=== PATIENT | male | born 1975 | race Caucasian/White ===

== ENCOUNTER 2019-10-19 11:39 | Emergency (ER) | payer MEDICAID ==
[~2019-10-19] VITALS: Ht 182.9 cm; Wt 111.9 kg
[2019-10-19 11:40] VITALS: BP 181/85
--- NOTE | 2019-10-19 11:53 | NUR ---
PATIENT BROUGHT BACK FROM TRIAGE WITH CHIEF COMPLAINT OF MID-LOWER BACK PAIN WITH RIGHT SHOULD PAIN. PATIENT HAS HX OF LOWER BACK PAIN HOWEVER NEW PAIN IS EXTENDED UP AND BELOW SHOULDER BLADE. PATIENT DENIES CP, N/V, OR RECENT TRAUMA. STATES "OCCASIONALY THE PAIN MAKES IT DIFFICULT TO TAKE A DEEP BREATH".
--- NOTE | 2019-10-19 12:23 | NUR ---
PATIENT TO IMAGING
[2019-10-19] MEDS ORDERED: PLEASE ENTER ALLERGIES MC SCH (12:30)
[2019-10-19] MEDS ORDERED: METHOCARBAMOL 750 MG TABLET ONE (12:30)
[2019-10-19] MEDS ORDERED: KETOROLAC 30 MG/1 ML ONE (12:30)
[2019-10-19] MEDS ORDERED: METHOCARBAMOL 750 MG TABLET PO ONE (12:30)
[2019-10-19] MEDS ORDERED: KETOROLAC 30 MG/1 ML IM ONE (12:30)
--- NOTE | 2019-10-19 12:55 | NUR ---
DISCHARGE INSTRUCTIONS REVIEWED
== END 2019-10-19 13:07 | disposition home or self-care (01) ==
LOC: ED 13:04
DX: M54.6 Pain in thoracic spine (principal)
CPT/HCPCS: 72072; 96372; 99283; J1885